=== PATIENT | female | born 2000 | race Caucasian/White ===

== ENCOUNTER 2019-09-13 06:54 | Emergency (ER) | payer MEDICAID ==
[~2019-09-13] VITALS: Ht 157.5 cm; Wt 53.0 kg
[2019-09-13] MEDS ORDERED: ACETAMINOPHEN 325MG TABLET PO ONE (07:30)
[2019-09-13 08:03] LABS: BASOPHILS % 0.3 % (0.0-2.0); EOSINOPHILS % 0.7 % (0.0-5.0); HEMATOCRIT. 33.9 % (36.0-48.0); HEMOGLOBIN. 11.7 g/dL (12.0-16.0); LYMPHOCYTES % 18.9 % (20.0-50.0); MEAN CORPUSCULAR HEMOGLOBIN 30.2 pg (28.0-32.0); MEAN CORPUSCULAR VOLUME 87.9 fL (81.0-99.0); MEAN PLATELET VOLUME 8.6 fl (7.4-10.4); MONOCYTES % 5.8 % (2.0-8.0); NEUTROPHILS % 74.3 % (40.0-76.0); PLATELET 261 x1000/uL (130-400); RED BLOOD CELL COUNT 3.86 mill/uL (4.2-5.4); RED CELL DISTRIBUTION WIDTH 12.4 % (11.6-14.6)
[2019-09-13 08:05] LABS: CHLORIDE 105 mEq/L (98-107)
[2019-09-13 08:08] LABS: CLARITY URINE CLOUDY (CLEAR); COLOR URINE DARK YELLOW (YELLOW); KETONES URINE 3+ (NEGATIVE); LEUKOCYTE ESTERASE URINE TRACE (NEGATIVE); NITRITE URINE POSITIVE (NEGATIVE); OCCULT BLOOD URINE NEGATIVE (NEGATIVE); PROTEIN URINE TRACE (NEGATIVE); SPECIFIC GRAVITY URINE 1.027 (1.005-1.030); UROBILINOGEN URINE 0.2 E.U./dL (0.2-1.0)
[2019-09-13 08:30] LABS: B-HCG QUANTITATIVE 87426 mIU/mL (<3)
[2019-09-13 10:19] VITALS: BP 110/70
== END 2019-09-13 10:20 | disposition home or self-care (01) ==
LOC: ER 06:54
DX: O20.0 Threatened abortion (principal); O23.41 Unspecified infection of urinary tract in pregnancy, first trimester; O26.891 Other specified pregnancy related conditions, first trimester; R51 Headache; M54.5 Low back pain; Z3A.13 13 weeks gestation of pregnancy
CPT/HCPCS: 36415; 76801; 81003; 81025; 84702; 86850; 86900; 99284

== ENCOUNTER 2021-03-08 19:04 | Emergency (ER) | payer MEDICAID, OTHER ==
[~2021-03-08] VITALS: Ht 152.4 cm; Wt 65.0 kg
[2021-03-08 19:06] VITALS: BP 103/64
== END 2021-03-08 21:38 | disposition left against medical advice (07) ==
LOC: ER 19:04
DX: Z53.21 Procedure and treatment not carried out due to patient leaving prior to being seen by health care provider (principal)